=== PATIENT | female | born 1980 | race Hispanic/Latino ===

== ENCOUNTER 2017-06-21 19:12 | Emergency (ER) | payer SELFPAY ==
[~2017-06-21] VITALS: Ht 162.6 cm; Wt 141.0 kg
[2017-06-21] MEDS ORDERED: METFORMIN500 M1 PO (19:26)
[2017-06-21] MEDS ORDERED: METFORMIN500 M2 PO (19:42)
[2017-06-21] MEDS ORDERED: NAPROSYN500 MG PO (20:11)
[2017-06-21 20:20] VITALS: BP 118/85
== END 2017-06-21 20:20 | disposition home or self-care (01) | DRG 554 ==
LOC: ED 19:12
DX: M17.11 Unilateral primary osteoarthritis, right knee (principal); M25.561 Pain in right knee; M76.51 Patellar tendinitis, right knee

== ENCOUNTER 2017-07-29 07:52 | Emergency (ER) | payer SELFPAY ==
[~2017-07-29] VITALS: Ht 162.6 cm; Wt 140.0 kg
[~2017-07-29 07:52] MED LIST: METFORMIN500 M1 PO; METFORMIN500 M2 PO; NAPROSYN500 MG PO
[2017-07-29] MEDS ORDERED: LAMISIL AT1 % EX (08:12)
[2017-07-29] MEDS ORDERED: DOXYCYC MONO100 M2 PO (08:12)
[2017-07-29 08:56] VITALS: BP 137/92
[2017-07-29] MEDS ORDERED: BACTRIM DS1 TAB PO (09:12)
== END 2017-07-29 08:57 | disposition home or self-care (01) | DRG 603 ==
LOC: ED 07:52
DX: L03.115 Cellulitis of right lower limb (principal); B35.4 Tinea corporis; E11.9 Type 2 diabetes mellitus without complications; F17.210 Nicotine dependence, cigarettes, uncomplicated

== ENCOUNTER 2017-10-23 09:38 | Emergency (ER) | payer SELFPAY ==
[~2017-10-23] VITALS: Ht 162.6 cm; Wt 150.0 kg
[~2017-10-23 09:38] MED LIST changes: +BACTRIM DS1 TAB PO; +DOXYCYC MONO100 M2 PO; +LAMISIL AT1 % EX
[2017-10-23] MEDS ORDERED: LISINOPRIL20 MG PO (10:16)
[2017-10-23] MEDS ORDERED: XANAX0.25 MG PO (10:19)
[2017-10-23 10:58] LABS: ALBUMIN 3.7 g/dL (3.2-5.0); ALKALINE PHOSPHATASE 101 u/l (38-126); ANION GAP 15 (6-22 (CALC)); BILIRUBIN, TOTAL 0.2 mg/dL (0.0-1.4); BUN 11 mg/dL (7-17); BUN/CREATININE RATIO 17 (12-20 (CALC)); CALCIUM 9.7 mg/dL (8.4-10.2); CARBON DIOXIDE 25 mmol/l (22-30); CHLORIDE 105 mmol/l (95-108); CREATININE 0.6 mg/dL (0.5-1.0); GFR > 60 ML/MIN (>=60 (CALC)); GFR FOR AFR.AMER. > 60 ML/MIN (>=60 (CALC)); GLUCOSE 98 mg/dL (65-105); POTASSIUM 5.1 mmol/l (3.5-5.1); SGOT/AST 25 u/l (14-36); SGPT/ALT 34 u/l (9-52); SODIUM 139 mmol/l (137-146); TOTAL PROTEIN 6.8 g/dL (6.3-8.2)
[2017-10-23 11:06] LABS: HEMATOCRIT 39.3 % (37.0-47.0); IMMATURE GRANULOCYTES 0.6 % (0.0-1.0); MEAN CELL VOLUME 91.4 fL CALC (80.0-100.0); MEAN CORPUSCULAR HGB 30.2 pG CALC (26.0-32.0); MEAN CORPUSCULAR HGB CONC 33.1 g/L CALC (32.0-36.0); NEUT# 5.83 thou/uL (2.00-7.15); RED BLOOD COUNT 4.3 mill/uL (4.20-5.60)
[2017-10-23] MEDS ORDERED: BENADRYL 50MG C50 MG PO (11:40)
[2017-10-23] MEDS ORDERED: CIMETIDINE400 M1 PO (11:40)
[2017-10-23 11:45] VITALS: BP 147/86
== END 2017-10-23 12:06 | disposition home or self-care (01) | DRG 918 ==
LOC: ED 09:38
PROVIDERS: Emergency Medicine
DX: T65.811A Toxic effect of latex, accidental (unintentional), initial encounter (principal); E11.9 Type 2 diabetes mellitus without complications; L23.5 Allergic contact dermatitis due to other chemical products; F41.9 Anxiety disorder, unspecified; F17.210 Nicotine dependence, cigarettes, uncomplicated; Z91.19 Patient's noncompliance with other medical treatment and regimen
CPT/HCPCS: J2060

== ENCOUNTER 2017-11-24 13:22 | Emergency (ER) | payer SELFPAY ==
[~2017-11-24] VITALS: Ht 162.6 cm; Wt 140.0 kg
[~2017-11-24 13:22] MED LIST changes: +BENADRYL 50MG C50 MG PO; +CIMETIDINE400 M1 PO; +LISINOPRIL20 MG PO; +XANAX0.25 MG PO
[2017-11-24 13:57] LABS: HEMATOCRIT 37.2 % (37.0-47.0); HEMOGLOBIN 12.3 g/dl (12.0-16.0); IMMATURE GRANULOCYTES 0.4 % (0.0-1.0); MEAN CELL VOLUME 93.5 fL CALC (80.0-100.0); MEAN CORPUSCULAR HGB 30.9 pG CALC (26.0-32.0); MEAN CORPUSCULAR HGB CONC 33.1 g/L CALC (32.0-36.0); NEUT# 7.58 thou/uL (2.00-7.15); RED BLOOD COUNT 3.98 mill/uL (4.20-5.60); RED CELL DISTRI WIDTH 14.9 % (11.5-15.5)
[2017-11-24 14:08] LABS: ANION GAP 17 (6-22 (CALC)); BUN 9 mg/dL (7-17); BUN/CREATININE RATIO 14 (12-20 (CALC)); CALCIUM 10.1 mg/dL (8.4-10.2); CARBON DIOXIDE 23 mmol/l (22-30); CHLORIDE 104 mmol/l (95-108); CREATININE 0.6 mg/dL (0.5-1.0); GFR > 60 ML/MIN (>=60 (CALC)); GFR FOR AFR.AMER. > 60 ML/MIN (>=60 (CALC)); GLUCOSE 97 mg/dL (65-105); POTASSIUM 4.3 mmol/l (3.5-5.1); SODIUM 140 mmol/l (137-146)
[2017-11-24] MEDS ORDERED: PREDNISONE50 MG PO (17:33)
[2017-11-24 17:46] VITALS: BP 145/75
== END 2017-11-24 17:56 | disposition home or self-care (01) | DRG 916 ==
LOC: ED 13:22
PROVIDERS: Family Medicine
DX: T78.3XXA Angioneurotic edema, initial encounter (principal); T78.40XA Allergy, unspecified, initial encounter; R21 Rash and other nonspecific skin eruption

== ENCOUNTER 2018-06-29 11:03 | Emergency (ER) | payer SELFPAY ==
[~2018-06-29] VITALS: Ht 162.6 cm; Wt 140.0 kg
[~2018-06-29 11:03] MED LIST changes: +PREDNISONE50 MG PO
[2018-06-29] MEDS ORDERED: TRAZODONE100 MG PO (11:18)
[2018-06-29] MEDS ORDERED: PAXIL30 MG PO (11:26)
[2018-06-29] MEDS ORDERED: IBUPROFEN600 MG PO (12:53)
[2018-06-29 13:10] VITALS: BP 123/87
== END 2018-06-29 13:10 | disposition home or self-care (01) | DRG 554 ==
LOC: ED 11:03
DX: M19.071 Primary osteoarthritis, right ankle and foot (principal); M77.31 Calcaneal spur, right foot; E11.9 Type 2 diabetes mellitus without complications; F41.9 Anxiety disorder, unspecified; F43.10 Post-traumatic stress disorder, unspecified; F31.9 Bipolar disorder, unspecified; F17.210 Nicotine dependence, cigarettes, uncomplicated

== ENCOUNTER 2019-05-31 15:56 | Emergency (ER) | payer SELFPAY ==
[~2019-05-31] VITALS: Ht 162.6 cm; Wt 127.8 kg
[~2019-05-31 15:56] MED LIST changes: +IBUPROFEN600 MG PO; +PAXIL30 MG PO; +TRAZODONE100 MG PO
[2019-05-31] MEDS ORDERED: GABAPENTIN100 MG PO (16:36)
[2019-05-31] MEDS ORDERED: PREDNISONE20 MG PO (17:48)
[2019-05-31 17:49] VITALS: BP 98/66
== END 2019-05-31 18:01 | disposition home or self-care (01) | DRG 918 ==
LOC: ED 15:56
DX: T65.811A Toxic effect of latex, accidental (unintentional), initial encounter (principal); R22.0 Localized swelling, mass and lump, head; E11.9 Type 2 diabetes mellitus without complications

== ENCOUNTER 2019-07-24 17:14 | Emergency (ER) | payer SELFPAY ==
[~2019-07-24] VITALS: Ht 162.6 cm; Wt 118.2 kg
[~2019-07-24 17:14] MED LIST changes: +GABAPENTIN100 MG PO; +PREDNISONE20 MG PO
[2019-07-24] MEDS ORDERED: CYANOCOBAL1000 MCG/M SC (18:08)
[2019-07-24] MEDS ORDERED: ASPIRIN 8181 MG PO (18:09)
[2019-07-24] MEDS ORDERED: PAXIL40 MG PO (18:09)
[2019-07-24] MEDS ORDERED: ATIVAN1 M1 PO (18:10)
[2019-07-24] MEDS ORDERED: LISINOPRIL5 MG PO (18:10)
[2019-07-24] MEDS ORDERED: METHOCARBAM500 MG PO (18:11)
[2019-07-24] MEDS ORDERED: TRAZODONE50 MG PO (18:11)
[2019-07-24] MEDS ORDERED: VOLTAREN - GENE75 MG PO (19:03)
[2019-07-24 20:00] VITALS: BP 132/77
== END 2019-07-24 20:28 | disposition home or self-care (01) | DRG 563 ==
LOC: ED 17:14
DX: S39.012A Strain of muscle, fascia and tendon of lower back, initial encounter (principal); E11.9 Type 2 diabetes mellitus without complications; F17.210 Nicotine dependence, cigarettes, uncomplicated; W01.0XXA Fall on same level from slipping, tripping and stumbling without subsequent striking against object, initial encounter; Z79.84 Long term (current) use of oral hypoglycemic drugs

== ENCOUNTER 2019-09-09 13:06 | Emergency (ER) | payer SELFPAY ==
[~2019-09-09] VITALS: Ht 162.6 cm; Wt 129.1 kg
[~2019-09-09 13:06] MED LIST changes: +ASPIRIN 8181 MG PO; +ATIVAN1 M1 PO; +CYANOCOBAL1000 MCG/M SC; +LISINOPRIL5 MG PO; +METHOCARBAM500 MG PO; +PAXIL40 MG PO; +TRAZODONE50 MG PO; +VOLTAREN - GENE75 MG PO
[2019-09-09] MEDS ORDERED: PREDNISONE50 MG PO (17:19)
[2019-09-09] MEDS ORDERED: EPIPEN 2-P0.3 MG/0.3 IM (17:19)
[2019-09-09 18:22] VITALS: BP 107/55
== END 2019-09-09 18:22 | disposition home or self-care (01) | DRG 916 ==
LOC: ED 13:06
DX: T78.40XA Allergy, unspecified, initial encounter (principal); E11.9 Type 2 diabetes mellitus without complications; X58.XXXA Exposure to other specified factors, initial encounter; Z79.84 Long term (current) use of oral hypoglycemic drugs

== ENCOUNTER 2020-08-11 17:31 | Emergency (ER) | payer SELFPAY ==
[~2020-08-11] VITALS: Ht 162.6 cm; Wt 136.3 kg
[~2020-08-11 17:31] MED LIST changes: +EPIPEN 2-P0.3 MG/0.3 IM
[2020-08-11 18:26] LABS: HEMATOCRIT 38.9 % (37.0-47.0); HEMOGLOBIN 12.1 g/dl (12.0-16.0); IMMATURE GRANULOCYTES 0.2 % (0.0-5.0); MEAN CELL VOLUME 92.4 fL CALC (80.0-100.0); MEAN CORPUSCULAR HGB 28.7 pG CALC (26.0-32.0); MEAN CORPUSCULAR HGB CONC 31.1 g/dL CAL (32.0-36.0); NEUT# 9.68 thou/uL (2.00-7.15); RED BLOOD COUNT 4.21 mill/uL (4.20-5.60); RED CELL DISTRI WIDTH 15.9 % (11.5-15.5)
[2020-08-11 18:39] LABS: ALBUMIN 3.9 g/dL (3.2-5.0); ALKALINE PHOSPHATASE 110 u/l (38-126); BUN 13 mg/dL (7-17); BUN/CREATININE RATIO 26 (12-20 (CALC)); CHLORIDE 102 mmol/l (95-108); CREATININE 0.5 mg/dL (0.5-1.0); ETHYL ALCOHOL 0 mg/dl (0-30); GFR > 60 ML/MIN (>=60 (CALC)); GFR FOR AFR.AMER. > 60 ML/MIN (>=60 (CALC)); POTASSIUM 3.6 mmol/l (3.5-5.1); SGOT/AST 16 u/l (14-36); SODIUM 137 mmol/l (137-146); TOTAL PROTEIN 7.4 g/dL (6.3-8.2)
[2020-08-11 18:41] LABS: URINE BILIRUBIN - DIPSTICK NEGATIVE (NEGATIVE); URINE BLOOD DIPSTICK NEGATIVE (NEGATIVE); URINE COLOR YELLOW; URINE GLUCOSE - DIPSTICK NEGATIVE (NEGATIVE); URINE KETONE TRACE mg/dL (NEGATIVE); URINE LEUK ESTERASE NEGATIVE (NEGATIVE); URINE PH 5.5 (4.5-8.0); URINE PROTEIN - DIPSTICK NEGATIVE (NEG-TRACE); URINE SPECIFIC GRAVITY >=1.030; URINE UROBILINOGEN - DIPSTICK 0.2 E.U./dL (0.2)
[2020-08-11 18:41] LABS: ANION GAP 10 (6-22 (CALC)); BILIRUBIN, TOTAL 0.3 mg/dL (0.0-1.4); CARBON DIOXIDE 29 mmol/l (22-30)
[2020-08-11 18:42] LABS: URINE NITRITE - DIPSTICK POSITIVE (Negative)
[2020-08-11 18:51] LABS: URINE BACTERIA MANY hpf; URINE CALCIUM OXALATE CRYSTALS MANY lpf; URINE SQUAMOUS EPITHELIAL CELL FEW EPI/hpf (0-FEW)
[2020-08-11 21:05] VITALS: BP 108/78
== END 2020-08-11 21:05 | disposition designated cancer center or children's hospital (05) | DRG 605 ==
LOC: ED 17:31
PROVIDERS: Student in an Organized Health Care Education/Training Program
DX: S61.012A Laceration without foreign body of left thumb without damage to nail, initial encounter (principal); F31.9 Bipolar disorder, unspecified; F41.9 Anxiety disorder, unspecified; I10 Essential (primary) hypertension; E11.9 Type 2 diabetes mellitus without complications; J45.909 Unspecified asthma, uncomplicated; F43.10 Post-traumatic stress disorder, unspecified; R82.71 Bacteriuria; X78.1XXA Intentional self-harm by knife, initial encounter; Z79.84 Long term (current) use of oral hypoglycemic drugs

== ENCOUNTER 2020-11-29 19:07 | Emergency (ER) | payer SELFPAY ==
[~2020-11-29] VITALS: Ht 162.6 cm; Wt 132.0 kg
[2020-11-29] MEDS ORDERED: DOXYCYCL HYC100 MG PO (20:25)
[2020-11-29] MEDS ORDERED: VOLTAREN75 MG PO (20:25)
[2020-11-29 20:29] VITALS: BP 127/78
== END 2020-11-29 20:41 | disposition home or self-care (01) | DRG 916 ==
LOC: ED 19:07
DX: T78.40XA Allergy, unspecified, initial encounter (principal); L03.115 Cellulitis of right lower limb; I10 Essential (primary) hypertension; E11.9 Type 2 diabetes mellitus without complications; F41.9 Anxiety disorder, unspecified; F31.9 Bipolar disorder, unspecified; J45.909 Unspecified asthma, uncomplicated; X58.XXXA Exposure to other specified factors, initial encounter

== ENCOUNTER 2020-12-01 19:13 | Emergency (ER) | payer SELFPAY ==
[~2020-12-01] VITALS: Ht 162.6 cm; Wt 131.0 kg
[~2020-12-01 19:13] MED LIST changes: +DOXYCYCL HYC100 MG PO; +VOLTAREN75 MG PO
[2020-12-01] MEDS ORDERED: MEDDOSEPAK PO (20:08)
[2020-12-01] MEDS ORDERED: LORTAB 5/3255 MG PO (20:08)
[2020-12-01] MEDS ORDERED: BENADRYL 50MG C50 MG PO (20:08)
[2020-12-01 20:47] VITALS: BP 140/98
== END 2020-12-01 20:47 | disposition home or self-care (01) | DRG 596 ==
LOC: ED 19:13
DX: L51.1 Stevens-Johnson syndrome (principal); L03.115 Cellulitis of right lower limb; I10 Essential (primary) hypertension; E11.9 Type 2 diabetes mellitus without complications; F41.9 Anxiety disorder, unspecified; F31.9 Bipolar disorder, unspecified; J45.909 Unspecified asthma, uncomplicated; F17.210 Nicotine dependence, cigarettes, uncomplicated

== ENCOUNTER 2020-12-25 04:33 | Emergency (ER) | payer SELFPAY ==
[~2020-12-25] VITALS: Ht 162.6 cm; Wt 136.0 kg
[~2020-12-25 04:33] MED LIST changes: +LORTAB 5/3255 MG PO; +MEDDOSEPAK PO
[2020-12-25] MEDS ORDERED: PREDNISONE50 MG PO (06:18)
[2020-12-25 06:39] VITALS: BP 133/69
== END 2020-12-25 06:39 | disposition home or self-care (01) | DRG 916 ==
LOC: ED 04:33
DX: T78.40XA Allergy, unspecified, initial encounter (principal); L03.115 Cellulitis of right lower limb; I87.2 Venous insufficiency (chronic) (peripheral); L51.1 Stevens-Johnson syndrome; I10 Essential (primary) hypertension; E11.9 Type 2 diabetes mellitus without complications; F41.9 Anxiety disorder, unspecified; F31.9 Bipolar disorder, unspecified; J45.909 Unspecified asthma, uncomplicated; F17.210 Nicotine dependence, cigarettes, uncomplicated; X58.XXXA Exposure to other specified factors, initial encounter

== ENCOUNTER 2021-05-19 13:41 | Emergency (ER) | payer SELFPAY ==
[~2021-05-19] VITALS: Ht 162.6 cm; Wt 154.5 kg
[2021-05-19] MEDS ORDERED: FLOVENT HF110 MCG/AC IN (14:27)
[2021-05-19] MEDS ORDERED: LISINOPRIL5 MG PO (14:27)
[2021-05-19] MEDS ORDERED: GABAPENTIN100 MG PO (14:27)
[2021-05-19] MEDS ORDERED: DICLOFENAC SODI75 MG PO (14:28)
[2021-05-19] MEDS ORDERED: PAXIL30 MG PO (14:29)
[2021-05-19] MEDS ORDERED: LORTAB 5/3255 MG PO (14:29)
[2021-05-19] MEDS ORDERED: METFORMIN500 M2 PO (14:29)
[2021-05-19] MEDS ORDERED: CYANOCOBAL1000 MCG/M SC (14:42)
[2021-05-19 17:05] VITALS: BP 129/74
== END 2021-05-19 17:05 | disposition home or self-care (01) | DRG 605 ==
LOC: ED 13:41
DX: S80.12XA Contusion of left lower leg, initial encounter (principal); M54.5 Low back pain; M25.532 Pain in left wrist; M25.511 Pain in right shoulder; I10 Essential (primary) hypertension; E11.9 Type 2 diabetes mellitus without complications; F41.9 Anxiety disorder, unspecified; F31.9 Bipolar disorder, unspecified; J45.909 Unspecified asthma, uncomplicated; F17.210 Nicotine dependence, cigarettes, uncomplicated; W10.9XXA Fall (on) (from) unspecified stairs and steps, initial encounter; Y92.009 Unspecified place in unspecified non-institutional (private) residence as the place of occurrence of the external cause; Z79.84 Long term (current) use of oral hypoglycemic drugs